=== PATIENT | male | born 1950 | race Caucasian/White ===

== ENCOUNTER 2017-07-03 18:50 | Emergency (ER) | payer OTHER ==
[~2017-07-03] VITALS: Ht 172.7 cm; Wt 73.5 kg
[2017-07-03 18:59] VITALS: BP 113/71
== END 2017-07-03 20:59 | disposition left against medical advice (07) ==
LOC: ER 18:50 → EDBD 18:50 → ER 19:15
DX: R07.9 Chest pain, unspecified (principal); Z53.21 Procedure and treatment not carried out due to patient leaving prior to being seen by health care provider
CPT/HCPCS: 93005

== ENCOUNTER 2017-09-18 15:57 | Emergency (ER) | payer OTHER ==
[~2017-09-18] VITALS: Ht 175.3 cm; Wt 77.1 kg
[2017-09-18] MEDS ORDERED: ASPirin 81 mg TAB PO ONE (16:15)
[2017-09-18] MEDS ORDERED: NITROGLYCERIN 0.4 MG SL TAB SL ONE (16:15)
[2017-09-18] MEDS ORDERED: cefTRIAXone 1GM/10ml IVPUSH 10 ML IV ONE (16:15)
[2017-09-18] MEDS ORDERED: METOPROLOL TARTRATE 50 MG TAB PO ONE (16:45)
[2017-09-18] MEDS ORDERED: HYDROcodone-ACET 5/325MG TAB PO ONE (16:45)
[2017-09-18 16:54] VITALS: BP 140/100
[2017-09-18 17:04] LABS: INR 1.01 (0.9-1.15); Partial Thromboplastin Time 26.6 sec (22.64-33.71)
[2017-09-18 17:05] LABS: Alanine Aminotransferase 20 U/L (16-61); Albumin 3.6 g/dL (3.4-5.0); Alkaline Phosphatase 128 U/L (45-117); Anion Gap 10 (5-15); Aspartate Aminotransferase 16 U/L (15-37); BUN/Creatinine Ratio 27.2; Basophils # (auto) 0 uL; Basophils % (auto) 0.5 % (0.0-2.0); Bilirubin, Total 0.2 mg/dL (0.2-1.0); Blood Urea Nitrogen 28 mg/dL (7-18); Calcium 8.4 mg/dL (8.5-10.1); Carbon Dioxide 21 mmol/L (21-32); Chloride 107 mmol/L (98-107); Eosinophils # (auto) 0.2 uL; Eosinophils % (auto) 3.3 % (0.0-7.0); GFR African American 93 mL/min; GFR Non-African American 77 mL/min; Glucose 78 mg/dL (74-106); Hematocrit 43.1 % (41.0-53.0); Hemoglobin 14.2 g/dL (13.5-17.5); Lymphocytes # (auto) 1.6 uL; Lymphocytes % (auto) 25.9 % (10.0-50.0); Mean Corpuscular Volume 97.1 fL (80.0-100.0); Monocytes # (auto) 0.3 uL; Monocytes % (auto) 4.1 % (0.0-12.0); Neutrophils # (auto) 4.2 uL; Neutrophils % (auto) 66.2 % (37.0-80.0); Nucleated Red Blood Cells % 0.1 %; Platelet Count (auto) 210 10^3/uL (140-450); Potassium 4.1 mmol/L (3.5-5.1); Red Blood Cells 4.44 10^6/uL (4.5-5.90); Red Cell Distribution Width 14.2 % (11.8-14.3); Sodium 138 mmol/L (136-145); Total Protein 7.5 g/dL (6.4-8.2); White Blood Cell 6.3 10^3/uL (4.4-10.8)
== END 2017-09-18 18:09 | disposition home or self-care (01) ==
LOC: EDBD 15:57 → ER 16:02
DX: J20.9 Acute bronchitis, unspecified (principal); K21.9 Gastro-esophageal reflux disease without esophagitis; I10 Essential (primary) hypertension; Z86.73 Personal history of transient ischemic attack (TIA), and cerebral infarction without residual deficits; Z98.61 Coronary angioplasty status
CPT/HCPCS: 36415; 71045; 80053; 83880; 84484; 85025; 85610; 85730; 87040; 93005; 96374

== ENCOUNTER 2017-12-18 18:38 | Emergency (ER) | payer OTHER ==
[~2017-12-18] VITALS: Ht 170.2 cm; Wt 86.2 kg
[2017-12-18 18:45] VITALS: BP 155/88
== END 2017-12-18 23:23 | disposition left against medical advice (07) ==
LOC: EDBD 18:38 → ER 18:43
DX: M54.9 Dorsalgia, unspecified (principal); R06.02 Shortness of breath; Z53.21 Procedure and treatment not carried out due to patient leaving prior to being seen by health care provider